=== PATIENT | male | born 1935 | race Caucasian/White ===

== ENCOUNTER 2017-02-07 11:47 | Inpatient (IN) | payer MEDICARE, OTHER ==
[~2017-02-07] VITALS: Ht 190.5 cm; Wt 113.4 kg
[2017-02-07] VITALS (10 sets, daily range): BP systolic 135–186; BP diastolic 73–96; PULSE 66–90; RESP 12–19; O2SAT 92–99
[~2017-02-07 11:47] MED LIST: ACET325T51 PO; ASPI-973 PO; Bupivacaine Liposome 1.3% 20 mL Inj INFILTRATE ONE; CHOL5000 PO; CeFAZolin 2 Gm/50 mL D5W IV Premix IV ONE; CeFAZolin Inj 3 GM in IV Premix IV ONE; LISI40TA PO; Lactated Ringer's 1,000 ML IV ONE; MULT-1073 PO; NIFE60TA62 PO; PARO20TA5 PO; PRAV20TA2 PO; TOP100 PO; Vancomycin Inj 1,750 MG in 0.9% Sodium Chloride 500 ML IV ONE
[2017-02-07] MEDS ORDERED: Lactated Ringer's 1,000 ML IV ONE (12:30)
[2017-02-07] MEDS ORDERED: 0.9% Sodium Chloride 1,000 ML IV ONE (12:30)
[2017-02-07] MEDS ORDERED: CeFAZolin 2 Gm/50 mL D5W Duplex Bag IV ONE (12:36)
--- NOTE | 2017-02-07 13:10 | PCM.HPANE ---
Patient Data Surgeon Admitting Provider: Attending Provider:Collin Metzger DO Primary Care Physician:Joe Ren MD Other Provider:Parul Ocampo Anesthesia Reason for Visit Right Knee Arthritis RIGHT KNEE ARTHRITIS Ht/WT & BMI Height (Feet): 6 Height (Inches): 3.00 Weight (Kilograms): 116.660 Body Mass Index 31.00 Allergies Coded Allergies: No Known Allergies (Unverified , 01/30/17) Past Anesthesia History Anesthesia History: Denies:: Abnormal Airway, Anesthesia Reactions, Difficult Intubation, Fam Anesthesia Reaction, Fam Malignant Hypertherm, Malignant Hyperthermia Diabetes History Hx Diabetes?: No MRSA MRSA: No Medications Blood Thinner: Aspirin Hypertension Medication: Yes Home Meds Incl Beta Tl: Yes Date Beta Tl Taken: Feb 07, 2017 Time Beta Tl Taken: 0800 Reported Medications Cholecalciferol (Vitamin D3) (Vitamin D3)5,000 Unit Capsule5,000 Unit PO DAILY 01/30/17 Acetaminophen 325 Mg Ooafzs315 Mg PO Q4H PRN For Pain Ref 0 01/30/17 Pravastatin 20 Mg Mzebvz52 Mg PO HS Ref 0 01/30/17 Paroxetine 20 Mg Idyaub37 Mg PO HS 30 Days Ref 0 01/30/17 Nifedipine ER 60 Mg Tab.er.2460 Mg PO DAILY Ref 0 01/30/17 Metoprolol Succinate ER (Toprol XL)100 Mg Qxrlqz042 Mg PO DAILY Ref 0 01/30/17 Lisinopril 40 Mg Iadgbs16 Mg PO HS 30 Days Ref 0 01/30/17 Multivits-Min/FA/Lycopene/Lut (Centrum Silver Tablet)1 Each Tablet1 Each PO DAILY 01/30/17 Aspirin 81 Mg Lqrcfn88 Mg PO DAILY Ref 0 01/30/17 History History of ENT Problems?: No HEENT History: Positive for:: Cataracts (bilateral surgery) Hearing Problem Denies:: Abnormal Airway Difficult Intubation Dysphagia Glaucoma Sinus Problem TMJ Denture Type: None Teeth Condition: Within Normal Limits Hx of Heart Problems?: Yes Cardiovascular History: Positive for:: Hypertension Denies:: AICD Abdominal Aortic Aneurism Atrial Fibrillation Heart Murmur Irregular Heartbeat Pacemaker Peripheral Vascular Hx of Respiratory Problem?: No Respiratory History: Denies:: Asthma COPD Emphysema Oxygen Administration Pneumonia Tuberculosis Use of C-PAP Machine Hx Neurologic Problems?: No Neurological History: Denies:: CVA Dizziness Headaches Multiple Sclerosis Parkinson's Disease Seizures TIA Hx of GI Problems?: Yes Hx of Problems?: No Genitourinary History: Denies:: Kidney Stones Urinary Tract Infection Male Hx: Positive for:: Prostate Problems (turp, prostate cancer with seeding tx ) Denies:: Scrotal Mass Testicular Surgery Skin History: Denies:: History Skin Disorders? Pressure Ulcers Hx Musculoskeletal Problems?: Yes Musculoskeletal History: Positive for:: Degenerative Joint Joint Replacement (left total knee, ) Musculoskeletal Trauma (left side fractures post parachute injury, right knee current admission) Osteoarthritis Denies:: Back Injury Fibromyalgia Hx of Psycho/Social Problems?: No Hx Surgeries?: Yes (turp, left total knee, left ankle fusion) Hx Any Other Health Problems?: Yes Other History: Positive for:: Cancer (prostate, bcc facial ) Denies:: Thyroid Disease History Blood Transfusions: Positive for:: Accept Blood Products? Denies:: Blood Transfusions Hx Diabetes: No Hx Alcohol Use: YesAlcoholic Drinks Per Day: 3 glasses wine yearlyHx Substance Use: NoHave You Smoked inLast 12 mo: No Stop/Bang Treated for Sleep Apnea?: No Do You Have a CPAP Machine?: No S-Snoring: Do You Snore Loudly: No T-Tired: feel tired, fatigued: No O-Obsered: Observed not breath: No P-Blood Pressure: treated: Yes B- Body Mass Index > 35 kg/m2: No A- Age over 50: Yes N- Neck Large Circumference: No G- Gender Male: Yes JOE Total Score: 3 JOE Risk Assessment: Low Risk, <3 Yes Risk Assessment Category Category 1A: Patient has history of documented sleep apnea, and HAS NOT received any narcotic, sedative or anesthesia administration during this stay. Category 1B: Patient has history of documented sleep apnea, and HAS received any narcotic , sedative or anesthesia administration during this stay Category 2: Patient has SUSPECTED Obstructive Sleep Apnea, and HAS received any narcotic , sedative or anesthesia administration during this stay. Category 3: Patient has SUSPECTED Obstructive Sleep Apnea and HAS NOT received narcotic, sedative or anesthesia administration during this stay. Category 4: Outpatient in Procedural Areas with known sleep apnea or who screen positive for High Risk via the STOP/BANG questionnaire. Exam Exam Vital Signs Vital Signs Date Time Temp Pulse Resp B/P Pulse Ox O2 Delivery O2 Flow Rate FiO2 02/07/17 12:08 37.3 66 16 168/96 99 Room Air General Appearance: Oriented X3 HEENT/AIRWAY: MP 2 Lungs: Normal Air Movement Heart: Regular Rate/Rhythm Meds/Labs/Diagnostics Admission Meds Current Medications Vancomycin HCl 1750 mg/Sodium Chloride 500 ml @ 333.333 mls/hr PREOP ONCE IV Last administered on 02/07/17 12:30; Start 02/07/17 at 06:00; Stop 02/07/17 at 07: 29; Status DC Lactated Ringer's 1,000 ml @ ud STK-MED ONCE IV Last administered on 02/07/17 12:30; Start 02/07/17 at 12:30; Stop 02/07/17 at 12:51; Status DC Sodium Chloride (Normal Saline) 1,000 ml @ ud STK-MED ONCE IV Last administered on 02/07/17 12:30; Start 02/07/17 at 12:30; Stop 02/07/17 at 12:51; Status DC Plan Impression Patient chart reviewed, patient interviewed and anesthestic plan with risks, benefits, and alternatives discussed, and informed consent obtained. ASA Physical Status: ASA2 Mod Systemic Disease Anesthetic Plan: GA, Regional Block Bene/Risks/Altern/Consents: Yes HP Complete Prior to Induction: Yes Jesse Hunt MD Feb 07, 2017 13:10
[2017-02-07] MEDS ORDERED: Tranexamic Acid 100 mg/mL 10 mL Inj ONE ×2 (13:22→15:03)
[2017-02-07] MEDS ORDERED: 0.9% Sodium Chloride 100 ML ONE ×2 (13:22→13:23)
[2017-02-07] MEDS ORDERED: Bupivacaine Liposome 1.3% 20 mL Inj ONE (13:23)
[2017-02-07] MEDS ORDERED: Bupivacaine Liposome 1.3% 20 mL Inj INFILTRATE ONE (14:09)
[2017-02-07] MEDS ORDERED: Bupivacaine-MPF 0.25% 30 mL Inj INFILTRATE ONE (14:09)
[2017-02-07] MEDS ORDERED: Sodium Chloride Bacteriostatic 30 mL Inj INJ ONE (14:11)
[2017-02-07] MEDS ORDERED: Lactated Ringer's 1,000 ML IV SCH (14:16)
[2017-02-07] MEDS ORDERED: Lactated Ringer's 500 ML IV PRN (14:16)
[2017-02-07] MEDS ORDERED: MetoCLOpramide 5 mg/mL 2 mL Inj IVPUSH PRN (14:20)
[2017-02-07] MEDS ORDERED: Phenylephrine 10,000 mCg/mL Inj IVPUSH PRN (14:20)
[2017-02-07] MEDS ORDERED: Dexamethasone 4 mg/mL Inj IVPUSH PRN (14:20)
[2017-02-07] MEDS ORDERED: fentaNYL-PF 50 mCg/mL 2 mL Inj IVPUSH PRN (14:20)
[2017-02-07] MEDS ORDERED: EPHEDrine Sulfate 50 mg/mL Inj IVPUSH PRN (14:20)
[2017-02-07] MEDS ORDERED: Ondansetron 2 mg/mL 2 mL Inj IVPUSH PRN ×2 (14:20→15:45)
[2017-02-07] MEDS ORDERED: HYDROmorphone 1 mg/mL Inj IVPUSH PRN (14:20)
[2017-02-07] MEDS ORDERED: diphenhydrAMINE 25 mg Capsule PO PRN (15:45)
[2017-02-07] MEDS ORDERED: Polyethylene Glycol (PEG) 17 Gm Powder PO PRN (15:45)
[2017-02-07] MEDS ORDERED: Magnesium Hydroxide 10 mL Oral Concentration PO PRN (15:45)
--- NOTE | 2017-02-07 16:28 | OP ---
[address] [address] OPERATIVE REPORT PATIENT: GRIS FARIAS : 1935 MR#: [id number] ADMIT: 02/07/2017 JOB ID: [id number] DATE OF SURGERY: 02/07/2017 PREOPERATIVE DIAGNOSIS(ES): Right knee degenerative joint disease. POSTOPERATIVE DIAGNOSIS(ES): Right knee degenerative joint disease. PROCEDURE: Right total knee arthroplasty. SURGEON: Collin Metzger DO LOCAL DELIVERY DRIVER: Marisela Edgar PA-C INDICATIONS: The patient is an 81-year-old male with right knee severe degenerative arthritis who has failed conservative measures and wished to proceed with a right total knee arthroplasty. He has had a good result with his left total knee arthroplasty. We discussed the risks, benefits, and possible complications of surgery. All questions were answered. He wished to proceed. A surgical services coordinator was required for the successful completion of this procedure. PROCEDURE IN DETAIL: The patient was brought to the operating room. He was given 1 g TXA preoperatively, as well as a preoperative antibiotic. A surgical time-out was performed. The right lower extremity was sterilely prepped and draped. A tourniquet was used for hemostasis. An incision was made over the anteromedial knee longitudinally. Dissection was carefully carried through the subcutaneous tissue. Electrocautery was used for hemostasis. A split was then made in the quad tendon leaving a cuff of tissue for repair. This was taken along the medial retinaculum, down onto the proximal medial tibial face. The patella was everted and the femur was then instrumented with the intramedullary drill and intramedullary cutting jig. A 5 degree distal valgus cut angle was chosen based on the patient's anatomy and 10 mm planned resection. The cut was performed and the tibia was then addressed with an extramedullary tibial cutting guide. I used the stylet to place this just below the defect laterally and made sure that the tibial cutting guide was parallel to the long axis of the tibia. The cutting guide was pinned into position. The cut was performed, completed with an osteotome, and removed. Next the medial and lateral menisci were removed and the femur was sized, felt to be a size nine, with about 5 degrees of external rotation. A box cutting guide was placed, pinned into position, and the box cut was performed. Next, trials were performed and the knee was a bit tight in going into extension, therefore some additional posterior release and removal of osteophytes was performed, thus allowing full flexion and full extension with equal gaps medially and laterally. The femur was drilled. The tibia was drilled and punched. The patella was resurfaced with a free hand technique, cut from an initial thickness of 28 to a thickness of 16 with a 41 mm patellar button chosen, drilled for, and trialed and had excellent tracking. The bony surfaces were washed and dried, and the components were cemented into position, beginning with the DePuy Attune fixed bearing eight tibia followed by the DePuy Attune posterior stabilized nine femur and a 5 mm thickness poly with a 41 mm patellar button. All excess cement was removed. A mixture of Marcaine, Exparel, and saline was added as an local anesthetic in the posterior knee. The cement was allowed to polymerize. All excess cement was removed and the tourniquet was let down. Electrocautery was used for hemostasis. The wound was copiously irrigated and then closed with #1 Surgilon and 0 Vicryl to repair the quad tendon and medial retinaculum. The subcu was closed with 2-0 Vicryl and the skin was closed with a running subcuticular Stratafix. Sterile dressings were applied. The patient tolerated the procedure well. BLOOD LOSS: 50 mL. POSTOPERATIVE PROTOCOL: Will have the patient weightbear to tolerance. Ice and elevate. Will plan use aspirin 325 b.i.d. for DVT prophylaxis. LAURA
--- NOTE | 2017-02-07 16:43 | DRSVH ---
PROCEDURE: X-RAY RIGHT KNEE, ONE OR TWO VIEWS ([id number]) INDICATIONS: post op TECHNIQUE: 3 views of the knee were acquired. COMPARISON: MERGED WITH [facility], CR, XR KNEE ARTHRITIC SERIES RT, 05/12/2016, 8:50. FINDINGS: Expected postoperative changes of the right knee are present related to total right knee arthroplasty . The metallic prosthetic components appear to be properly seated without periprosthetic fracture. No suspicious osseous lesions are evident. Expected postoperative changes within the overlying soft tissues are present with areas of soft tissue air and soft tissue fluid. No unexpected radiopaque fo reign bodies are evident. IMPRESSION: Expected postoperative changes related to total right knee arthroplasty. Dictated by: Wesley oK M.D. on 02/07/2017 at 15:40 Approved by: Wesley Ko M.D. on 02/07/2017 at 15:41
--- NOTE | 2017-02-07 17:08 | PCM.ANEP1 ---
Post Anesthesia PACU Phase 1 Assessment Vital Signs Vital Signs Date Time Temp Pulse Resp B/P Pulse Ox O2 Delivery O2 Flow Rate FiO2 02/07/17 16:56 87 12 135/87 96 Nasal Cannula 2 02/07/17 16:49 71 19 180/89 96 Nasal Cannula 2 02/07/17 16:41 83 12 163/85 96 Nasal Cannula 2 02/07/17 16:31 86 15 186/94 96 Nasal Cannula 2 02/07/17 16:14 90 12 185/82 96 Simple Mask 8 02/07/17 16:11 79 14 163/73 96 Simple Mask 8 02/07/17 16:01 36.7 70 15 177/79 92 Simple Mask 8 02/07/17 12:08 37.3 66 16 168/96 99 Room Air Anesthetic Administered: GA, Regional Block Level of Alertness: Awake, talking Pain: No Nausea or Vomiting: No CV Function & Hydration Stable: Yes Airway Device: Lungs: Normal Air Movement PACU Phase 2 Assessment Patient Instructions Provided: N/A Jesse Hunt MD Feb 07, 2017 17:08
[2017-02-07] MEDS ORDERED: HYDROmorphone 1 mg/mL Inj ONE (17:30)
[2017-02-07] MEDS ORDERED: MetoCLOpramide 5 mg/mL 2 mL Inj ONE (17:30)
[2017-02-07] MEDS ORDERED: Dexamethasone 4 mg/mL Inj ONE (17:30)
[2017-02-07] MEDS ORDERED: Propofol 10,000 mCg/mL 20 mL Inj ONE (17:30)
[2017-02-07] MEDS ORDERED: Ketamine 10 mg/mL 20 mL Inj ONE (17:30)
[2017-02-07] MEDS: 0.9% Sodium Chloride 1,000 ML IV SCH (17:50)
[2017-02-07] MEDS ORDERED: HYDROmorphone 0.5 mg/0.5 mL iSecure Syringe IVPUSH PRN (18:05)
[2017-02-07] MEDS: HYDROcodone-APAP 7.5-325 mg Tablet PO PRN ×2 (18:08→22:04)
[2017-02-07] MEDS: Sodium Chloride LOK Flush 10 mL Syringe IV SCH (18:08)
--- NOTE | 2017-02-07 18:29 | NUR ---
Post-op Pt. transferred from PACU at 1715. On arrival, he was alert, oriented, and talking. He was able to wiggle toes and wave R. ankle. SCD applied to LLE. PRN Hydrocodone 7.5/325 mg was given for increased pain of R. knee. Call light within his reach. PT and OT tomorrow.
[2017-02-07] MEDS: PARoxetine 20 mg Tablet PO SCH (20:21)
[2017-02-07] MEDS: Senna-Docusate 8.6-50 mg Tablet PO SCH (20:21)
[2017-02-07] MEDS ORDERED: CeFAZolin Inj 2 GM in IV Premix 1 EACH IV SCH (21:30)
[2017-02-07] MEDS: CeFAZolin Inj 2 GM in IV Premix 1 EACH IV SCH (21:38)
[2017-02-08 00:08] VITALS: BP 131/76; PULSE 70; RESP 17; O2SAT 95
[2017-02-08] MEDS: Sodium Chloride LOK Flush 10 mL Syringe IV SCH ×4 (00:30→22:58)
--- NOTE | 2017-02-08 01:04 | NUR ---
Pain Patient's pain level has been well managed with one Vicodin q4hr. Dressing is clean dry and intact. O2 was discontinued, SPO2 currently at 93%. Patient tolerating food well. Voiding regularly. Patient A&OX3. Care continues.
[2017-02-08] MEDS: HYDROcodone-APAP 7.5-325 mg Tablet PO PRN ×2 (02:51→06:46)
[2017-02-08] MEDS: 0.9% Sodium Chloride 1,000 ML IV SCH ×3 (04:32→21:43)
[2017-02-08 05:03] VITALS: BP 155/77; PULSE 59; RESP 17; O2SAT 94
[2017-02-08 05:24] LABS: BASOPHILS % (AUTO) 0.1 % (0-3); EOSINOPHILS % (AUTO) 0.1 % (0-5); MONOCYTES % (AUTO) 17.6 % (4-12); Mean Corpuscular Hemoglobin 30.9 pg (27.0-35.0); Mean Corpuscular Volume 91.3 fL (81-100); Platelet Count 178 bil/L (150-400)
[2017-02-08] MEDS: CeFAZolin Inj 2 GM in IV Premix 1 EACH IV SCH (05:54)
--- NOTE | 2017-02-08 08:59 | PCM.PNORTH ---
Subjective Date of Service: Feb 08, 2017 Visit Information: Reason for Visit Right Knee Arthritis Surgery/Surgery Date R TKA 02/07/17 Post-Op Day # 1 Date of Admission: Feb 07, 2017 at 17:29 Hospital Day # Subjective Complains of incisional pain. He has a 30 minute with physical therapy and walked to the door and back to the bed with crutches. Postop General: No Shortness of Breath, No Chest Pain Objective Exam Objective Patient is seen sitting up in bed Vital Signs and I/O Vital Sign - Last Date Time Temp Pulse Resp B/P Pulse Ox O2 Delivery O2 Flow Rate FiO2 02/08/17 05:03 36.6 59 17 155/77 94 Room Air 02/07/17 17:19 2.00 Intake and Output 02/07/17 02/07/17 02/08/17 Cumulative From/Thru 15:00 23:00 07:00 01/30/17 15:42 - 02/08/17 06:12 Intake Total 1250 ml 220 ml 1618 ml 3088 ml Output Total 40 ml 1200 ml 650 ml 1890 ml Balance 1210 ml -980 ml 968 ml 1198 ml Intake Oral 120 ml 400 ml 520 ml IV Total 1250 ml 100 ml 1218 ml 2568 ml Output Urine Total 1200 ml 650 ml 1850 ml Estimated Blood Loss 40 ml 40 ml # Bowel Movements 0 0 Lab & Micro Results Laboratory Tests Test 02/08/17 04:55 White Blood Count 14.1th/mm3 (3.8-10.1) Red Blood Count 4.01mil/mm3 (4.40-5.80) Hemoglobin 12.4g/dL (13.8-17.2) Hematocrit 36.6% (41.0-50.0) Mean Corpuscular Volume 91.3fL (81-100) Mean Corpuscular Hemoglobin 30.9pg (27.0-35.0) Mean Corpuscular Hemoglobin Concent 33.9% (32.0-37.0) Red Cell Distribution Width 14.1% (12.3-15.4) Platelet Count 178bil/L (150-400) Neutrophils (%) (Auto) 74.0% (40-74) Lymphocytes (%) (Auto) 7.9% (14-46) Monocytes (%) (Auto) 17.6% (4-12) Eosinophils (%) (Auto) 0.1% (0-5) Basophils (%) (Auto) 0.1% (0-3) Sodium Level 145mEq/L (134-144) Potassium Level 4.3mEq/L (3.5-5.2) Chloride Level 107mEq/L (97-108) Carbon Dioxide Level 24mmol/L (18-29) Blood Urea Nitrogen 20mg/dL (8-27) Creatinine 0.73mg/dL (0.76-1.27) Estimat Glomerular Filtration Rate 110mL/min (>59) Glucose Level 126mg/dL (60-99) Calcium Level 8.5mg/dL (8.5-10.1) Result Diagram: 02/08/1745402/08/17454 General Appearance: Alert, Oriented X3, Cooperative, No Acute Distress Extremities: Distal Pulses Palpable, No Compartment Syndrom Noted, Thigh & Calf Soft/Nontender Postop Sensory Motor: Distal Motor Intact, Distal Sensation Intact, NVI Distally SURGICAL WOUND : Wound Location/Description Right knee: Dressing is clean, dry and intact Activity: Activity per PT Catheters: None Assessment & Plan Impression POD #1 status post right total knee arthroplasty Problems: Plan Weightbearing: Weightbearing as tolerated with wheeled walker or crutches DVT prophylaxis: aspirin 325 mg twice a day 6 weeks Physical therapy for transfers, progressive ambulation, therapeutic exercise Wound care: PA will change dressing on postop day 2 Discharge plan: Discharge home in 1-2 days. Start outpatient physical therapy next week Follow-up plan: In 2 weeks at [facility] with PA for wound check and at [address] Metzger with x-rays Pain Management: Moose 7.5 mg, Tylenol VTE Prophylaxis: SCDs, Other (aspirin 325 mg twice a day) Resuscitation Status: CPR: Attempt Resuscitation GrenelefeAmie Calvin PA-C Feb 08, 2017 08:59
[2017-02-08] MEDS: NIFEdipine 30 mg ER24 Tablet PO SCH (10:06)
[2017-02-08] MEDS: MeTOProlol XL 50 mg ER24 Tablet PO SCH (10:07)
[2017-02-08] MEDS: Senna-Docusate 8.6-50 mg Tablet PO SCH ×2 (10:10→20:30)
[2017-02-08 10:16] VITALS: BP 150/69; PULSE 68; RESP 18; O2SAT 93
[2017-02-08 16:01] VITALS: BP 161/71; PULSE 79; RESP 18; O2SAT 92
--- NOTE | 2017-02-08 16:34 | NUR ---
Social Work: Initial Assessment Data & Assessment: See initial assessment. Patient is an 81 year old male who was admitted on 02/07/17 for right knee arthritis per H&P. Patient's insurance is Medicare and [employer]. Patient's PCP is Dr. Joe Ren. SW met with patient to discuss discharge planning. SW role explained. EMR reviewed. 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 Patient considers his to be his main source of support. Patient confirms that his is his DPOA and that AD have been completed. Patient states that he is I at baseline with all ADLs and care needs. Patient confirms that he has a cane and crutches available if needed. Patient states that he lives in a 2 story home and used his crutches to assist with ambulation on stairs when needed. Patient confirms that he drives via POV. Patient denies home health services or SNF. Patient informed SW that he utilized home infusion services about 2 years ago for IVABX therapy. Patient confirms that he has penitentiary care insurance and VA benefits. Upon discharge, patient states that his will assist with transportation home. SW provided patient with a discharge planning checklist and encouraged to call with any questions or concerns. Phone number provided. SW will continue to follow for needs. Plan: Patient will likely discharge home when medically stable. Patient's desire is to discharge home tomorrow. Patient has crutches and a cane available for use if needed. Transportation will be provided by spouse. SW will continue to follow for needs. MO Mcgrath Addendum: 02/08/17 at 1644 by GENOVEVA BURTON Amended: Links added.
--- NOTE | 2017-02-08 16:47 | NUR ---
Pain/mobility Patient medicated with oxycodone and Tylenol for pain control today. Patient rates his pain 7-8/10 when asked . Pt up with physical therapy using crutches . Patient can be impulsive so strict rules made with patient to call for staff to get up and crutches to bathroom. Bulky gracy wrap noted to right knee. Patient with some numbness to feet states this is his baseline and has not increased.
[2017-02-08 20:05] VITALS: BP 163/76; PULSE 88; RESP 20; O2SAT 92
[2017-02-08] MEDS: PARoxetine 20 mg Tablet PO SCH (22:29)
--- NOTE | 2017-02-08 23:36 | NUR ---
IV's/Pain At change of shift, pt demanding for both IV sites to be taken out stating, "I do not understand why I still have these." "They are annoying and loose," "I don't need them anymore, take them out." Pt also stated that he had previously asked for them to be removed prior to me coming on shift. I explained to pt why there were still in place/accessible and that he had the right to refuse care. Pt still wanted IV sites removed post explanation. I removed them, he has no IV access at this time and no IV medications to administer at this time. Pt receiving PO tylenol and PO oxy for pain to right knee 9 out of 10 post ambulation to BR.
[2017-02-09 00:05] VITALS: BP 147/79; PULSE 93; RESP 22; O2SAT 95
[2017-02-09 05:30] LABS: BASOPHILS % (AUTO) 0.4 % (0-3); EOSINOPHILS % (AUTO) 1.3 % (0-5); MONOCYTES % (AUTO) 23.3 % (4-12); Mean Corpuscular Hemoglobin 30.7 pg (27.0-35.0); Mean Corpuscular Volume 91.6 fL (81-100); NEUTROPHILS % (AUTO) 63.3 % (40-74); Platelet Count 184 bil/L (150-400)
[2017-02-09 05:40] VITALS: BP 163/75; PULSE 83; RESP 22; O2SAT 92
[2017-02-09] MEDS: Sodium Chloride LOK Flush 10 mL Syringe IV SCH (06:23)
[2017-02-09] MEDS: 0.9% Sodium Chloride 1,000 ML IV SCH (06:23)
--- NOTE | 2017-02-09 07:53 | PCM.PNORTH ---
Subjective Date of Service: Feb 09, 2017 Visit Information: Reason for Visit Right Knee Arthritis Surgery/Surgery Date R TKA 02/07/17 Post-Op Day # 2 Date of Admission: Feb 07, 2017 at 17:29 Hospital Day # Subjective I complains of quadriceps pain and incisional pain. He would like to use that walker today instead of the crutches. He is not sure if he is ready to go home today. He has not yet had therapy yet this morning. Postop General: No Shortness of Breath, No Chest Pain Objective Exam Objective Patient is seen sitting up in bed Vital Signs and I/O Vital Sign - Last Date Time Temp Pulse Resp B/P Pulse Ox O2 Delivery O2 Flow Rate FiO2 02/09/17 05:40 36.7 83 22 163/75 92 Room Air 02/07/17 17:19 2.00 Intake and Output 02/08/17 02/08/17 02/09/17 Cumulative From/Thru 15:00 23:00 07:00 01/30/17 15:42 - 02/09/17 05:40 Intake Total 1000 ml 4088 ml Output Total 850 ml 2740 ml Balance 150 ml 1348 ml Intake Oral 1000 ml 1520 ml IV Total 2568 ml Output Urine Total 850 ml 2700 ml Estimated Blood Loss 40 ml # Bowel Movements 1 1 Lab & Micro Results Laboratory Tests Test 02/09/17 05:04 White Blood Count 13.3th/mm3 (3.8-10.1) Red Blood Count 3.91mil/mm3 (4.40-5.80) Hemoglobin 12.0g/dL (13.8-17.2) Hematocrit 35.8% (41.0-50.0) Mean Corpuscular Volume 91.6fL (81-100) Mean Corpuscular Hemoglobin 30.7pg (27.0-35.0) Mean Corpuscular Hemoglobin Concent 33.5% (32.0-37.0) Red Cell Distribution Width 14.1% (12.3-15.4) Platelet Count 184bil/L (150-400) Neutrophils (%) (Auto) 63.3% (40-74) Lymphocytes (%) (Auto) 11.3% (14-46) Monocytes (%) (Auto) 23.3% (4-12) Eosinophils (%) (Auto) 1.3% (0-5) Basophils (%) (Auto) 0.4% (0-3) Sodium Level 141mEq/L (134-144) Potassium Level 3.6mEq/L (3.5-5.2) Chloride Level 105mEq/L (97-108) Carbon Dioxide Level 25mmol/L (18-29) Blood Urea Nitrogen 14mg/dL (8-27) Creatinine 0.64mg/dL (0.76-1.27) Estimat Glomerular Filtration Rate 128mL/min (>59) Glucose Level 131mg/dL (60-99) Calcium Level 8.4mg/dL (8.5-10.1) Result Diagram: 02/09/17 0504 02/09/17 0504 General Appearance: Alert, Oriented X3, Cooperative, No Acute Distress Extremities: Distal Pulses Palpable, No Compartment Syndrom Noted, Thigh & Calf Soft/Nontender Postop Sensory Motor: Distal Motor Intact, Distal Sensation Intact, NVI Distally SURGICAL WOUND : Wound Location/Description Right knee: Surgical dressing is removed. The wound is well approximated and Steri-Strips are in place. Negative for erythema, or ecchymosis. The wound is cleansed with hydrogen peroxide. Wound is dressed with Silverlon and ABD pad held in place with an Sigifredo wrap. Activity: Activity per PT Catheters: None Assessment & Plan Impression POD #2 status post right total knee arthroplasty Problems: Plan Weightbearing: Weightbearing as tolerated with wheeled walker or crutches DVT prophylaxis: aspirin 325 mg twice a day 6 weeks Physical therapy for transfers, progressive ambulation, therapeutic exercise Wound care: Dressing is changed today to Silverlon and ABDs pad, temporarily held in place with an Sigifredo wrap. Nursing please apply bilateral thigh-high CAMILLA hose and remove the Sigifredo wrap on the right leg. Discharge plan: Discharge home today or tomorrow, depending on how he does with therapy today. Start outpatient physical therapy next week Follow-up plan: In 2 weeks at [facility] with SCOTTIE for wound check and at [address] Metzger with x-rays Pain Management: Oxycodone, Tylenol VTE Prophylaxis: SCDs, Other (aspirin 325 mg twice a day) Resuscitation Status: CPR: Attempt Resuscitation [place] GulchAmie Calvin PA-C Feb 09, 2017 07:53
[2017-02-09] MEDS: MeTOProlol XL 50 mg ER24 Tablet PO SCH (08:01)
[2017-02-09] MEDS: NIFEdipine 30 mg ER24 Tablet PO SCH (08:01)
[2017-02-09] MEDS: Senna-Docusate 8.6-50 mg Tablet PO SCH (08:05)
--- NOTE | 2017-02-09 10:05 | PCM.DIORTH ---
Ortho Discharge Instruction Date of Service: Feb 09, 2017 Dates of Hospitalization Date of Hospital Admission Feb 07, 2017 at 17:29 Providers Admitting Physician: Collin Metzger DO Primary Care Physician: Joe Ren MD Attending Physician: Collin Metzger DO Diet Discharge Diet: No restrictions Activity Discharge Activity-General: Try not to overdue, Be up and about, Balance rest and activity, Elevate & ice extremity (6-10 times a day) Right Lower Extremity: Weight Bearing as tolerated Discharge Assist Device: Front Wheeled Walker Dressing and Incisional Care Discharge Dressing Care: Keep dressing clean, dry & intact Discharge Hygiene: May shower (see instructions below) Additional Instructions Discharge Instructions Every hour of the day that you are awake, get up and either walk or do some exercises. Increase your activity a little more each day. Push yourself with bending and straightening of the knee. Wear CAMILLA hose for 4 weeks on the right leg, and 2 weeks on the left leg On Monday the patient may shower if the wound has no drainage present. Wound may be uncovered to shower. Let soap and water run over the wound, pat dry and apply a new dressing. Reapply the silver dressing after getting it wet with saline syringe. Cover with the ABD pad. The CAMILLA hose will hold the dressing in place or use gracy wrap if the stockings are being washed. Start outpatient PT next week as scheduled DVT prophylaxis: Aspirin 325 mg twice a day for 6 weeks Follow Up Plan Follow Up Plan Follow-up in 2 weeks at [facility] with SCOTTIE for wound check, and at [address] Metzger with x-ray Call your provider for: Fever, Chills, Shortness of breath, Vomitting, Drainage at incision, Wound redness (that is spreading), Increasing pain (for no reason) Amie Enrique PA-C Feb 09, 2017 10:05
[2017-02-09] MEDS ORDERED: OXYC-530 PO (10:10)
--- NOTE | 2017-02-09 11:45 | NUR ---
Social Work- Readiness for Discharge/Multidisciplinary Rounds Data: EMR reviewed. Pt is on day 2 of hospitalization. Pt discussed in multidisciplinary rounds, pt is possibly going to d/c today but there are no d/c orders at this time. PT will likely work with pt again today. SW met with pt at bedside to discuss discharge plan, pt confirmed that his spouse will take him home at d/c. Pt has no questions or concerns related to d/c at this time. SW will continue to follow. Assessment: Pt who is independent at baseline with ADLs and self-care Plan: Pt likely to discharge home either today or tomorrow, spouse to transport via POV. Pt has no questions or concerns related to d/c at this time. SW will continue to follow. MO Lyn
--- NOTE | 2017-02-09 14:54 | PCM.DC.ORT ---
Discharge Summary Date of Service: Feb 09, 2017 Date of Hospital Admission: Feb 07, 2017 at 17:29 Date of Surgery: Feb 07, 2017 Date of Discharge: Feb 09, 2017 Reason for Hospitalization: Right knee arthritis Procedures Performed: Right total knee arthroplasty Hospital Course: The patient was admitted to the hospital on 02/07/2017 and underwent the above procedure. Antibiotic prophylaxis consisting of Ancef and vancomycin. The surgeon was Dr. Metzger. Patient tolerated the procedure well and was transferred to recovery room in stable condition. Patient had physical therapy to work on ambulation and transfers. Weightbearing as tolerated with walker. Pain was managed with Dilaudid, oxycodone, Tylenol. DVT prophylaxis: Aspirin 325 mg, SCDs, CAMILLA hose. Patient progressed well with physical therapy and on POD-2 was discharged home. Follow-up: at [facility] 2 weeks postop for wound check and at [address] Metzger with x-ray Diagnosis at Time of Discharge Status post right total knee arthroplasty Problems: Disposition: Discharged home in stable condition Discharge Instructions: Discharge Activity-General: Try not to overdue, Be up and about, Balance rest and activity, Elevate & ice extremity (6-10 times a day) Right Lower Extremity: Weight Bearing as tolerated Discharge Assist Device: Front Wheeled Walker Discharge Dressing Care: Keep dressing clean, dry & intact Discharge Hygiene: May shower (see instructions below) Every hour of the day that you are awake, get up and either walk or do some exercises. Increase your activity a little more each day. Push yourself with bending and straightening of the knee. Wear CAMILLA hose for 4 weeks on the right leg, and 2 weeks on the left leg On Monday the patient may shower if the wound has no drainage present. Wound may be uncovered to shower. Let soap and water run over the wound, pat dry and apply a new dressing. Reapply the silver dressing after getting it wet with saline syringe. Cover with the ABD pad. The CAMILLA hose will hold the dressing in place or use gracy wrap if the stockings are being washed. Start outpatient PT next week as scheduled DVT prophylaxis: Aspirin 325 mg twice a day for 6 weeks Follow-up in 2 weeks at [facility] with PA for wound check, and at [address] Metzger with x-ray Call your provider for: Fever, Chills, Shortness of breath, Vomitting, Drainage at incision, Wound redness (that is spreading), Increasing pain (for no reason) Acetaminophen (Acetaminophen) 325 Mg Tablet 650 MG PO Q4H PRN PRN For Pain Cholecalciferol (Vitamin D3) (Vitamin D3) 5,000 Unit Capsule 5,000 UNIT PO DAILY Lisinopril (Lisinopril) 40 Mg Tablet 20 MG PO HS Metoprolol Succinate ER (Toprol XL) 100 Mg Tablet 100 MG PO DAILY Multivits-Min/FA/Lycopene/Lut (Centrum Silver Tablet) 1 Each Tablet 1 EACH PO DAILY Nifedipine ER (Nifedipine ER) 60 Mg Tab.er.24 60 MG PO DAILY Paroxetine (Paroxetine) 20 Mg Tablet 20 MG PO HS Pravastatin (Pravastatin) 20 Mg Tablet 20 MG PO HS oxyCODONE (oxyCODONE) 5 Mg Tablet 5-10 MG PO Q4H PRN PRN For Severe Pain Amie Enrique PA-C Feb 09, 2017 14:54
--- NOTE | 2017-02-09 15:42 | NUR ---
Social Work- Discharge Data: EMR reviewed. Pt is on day 2 of hospitalization. Discharge orders are active. Pt has completed stair training. Spouse to take patient home at d/c. No d/c needs. Assessment: Pt who is independent at baseline with ADLs and self-care Plan: Pt to discharge home today, spouse to transport via POV. Pt has no questions or concerns related to d/c. No d/c needs. MO Lyn
--- NOTE | 2017-02-09 16:38 | NUR ---
Discharge Patient left floor at [id number] via wheelchair to be driven home by . All discharge information discussed with patient including medications, follow up appointments, and care instructions. Bharath hose applied prior to patient d/c. Patient sent with supplies to change dressing as instructed. All belongings left with patient including walker, cane, crutches. Patient had no IV access at time of d/c.
== END 2017-02-09 16:35 | disposition home or self-care (01) | DRG 470 ==
LOC: SAS 11:47 → OSC 17:29
PROVIDERS: ADMIT Orthopaedic Surgery; ATTEND Orthopaedic Surgery
PROC: 0SRC0J9 Replacement of Right Knee Joint with Synthetic Substitute, Cemented, Open Approach (ICD-10-PCS; principal; 2017-02-07 13:30)
DX: M17.11 Unilateral primary osteoarthritis, right knee (principal)